=== PATIENT | male | born 1965 | race Caucasian/White ===

== ENCOUNTER 2022-04-30 09:00 | Outpatient (RCR) | payer OTHER, SELFPAY | END 2022-04-30 09:05 | disposition home or self-care (01) | LOC: PT 09:00 | PROVIDERS: Visit Provider Student in an Organized Health Care Education/Training Program | DX: M79.18 Myalgia, other site (principal) | CPT/HCPCS: 20561; 97010; 97012; 97014; 97035; 97140; 97163; G0283 ==

== ENCOUNTER 2022-12-03 01:21 | Emergency (ER) | payer OTHER, SELFPAY ==
[2022-12-03 01:37] VITALS: BP 136/92; PULSE 97; RESP 16; TEMP 36.5; O2SAT 98; BMI 24.7
--- NOTE | 2022-12-03 01:37 | CT_ITS ---
PROCEDURE INFORMATION: Exam: CT Lumbar Spine Without Contrast Exam date and time: 12/03/2022 2:14 AM Age: 57 years old Clinical indication: Low back pain; Patient HX: States pain right sided that radiates down rle and up rue TECHNIQUE: Imaging protocol: Computed tomography of the lumbar spine without contrast. Radiation optimization: All CT scans at this facility use at least one of these dose optimization techniques: automated exposure control; mA and/or kV adjustment per patient size (includes targeted exams where dose is matched to clinical indication); or iterative reconstruction. REPORTING DATA: Count of CT and Cardiac NM exams in prior 12 months: This patient has received 0 known CTs and 0 known cardiac nuclear medicine studies in the 12 months prior to the current study. COMPARISON: CT THORACIC SPINE WO CON 12/03/2022 2:11 AM FINDINGS: Bones/joints: There are 5 lumbar type vertebrae in normal alignment. Vertebral body heights are normal throughout. Disc space heights are well maintained. There is mild facet arthropathy at L3-L4 and L4-L5. Minimal sacroiliac osteoarthritis. Normal psoas margins. Stomach and bowel: Large volume fecal debris noted throughout the visualized colon. Vasculature: Curvilinear hyperdensities are noted lateral to the right kidney, potentially prominent vessel or postsurgical change. Soft tissues: Unremarkable. IMPRESSION: Mild facet arthropathy at L3-L4 and L4-L5 without spinal canal or neural foraminal stenosis.
--- NOTE | 2022-12-03 01:37 | CT_ITS ---
PROCEDURE INFORMATION: Exam: CT Head Without Contrast Exam date and time: 12/03/2022 2:08 AM Age: 57 years old Clinical indication: Other: Radiating pain; Patient HX: States pain right sided that radiates down rle and up rue TECHNIQUE: Imaging protocol: Computed tomography of the head without contrast. Radiation optimization: All CT scans at this facility use at least one of these dose optimization techniques: automated exposure control; mA and/or kV adjustment per patient size (includes targeted exams where dose is matched to clinical indication); or iterative reconstruction. REPORTING DATA: Count of CT and Cardiac NM exams in prior 12 months: This patient has received 0 known CTs and 0 known cardiac nuclear medicine studies in the 12 months prior to the current study. COMPARISON: No relevant prior studies available. FINDINGS: Brain: Normal. No hemorrhage. Unremarkable white matter. No mass effect. Cerebral ventricles: No ventriculomegaly. Paranasal sinuses: Visualized sinuses are unremarkable. No fluid levels. Mastoid air cells: Visualized mastoid air cells are well aerated. Bones/joints: Unremarkable. No acute fracture. Soft tissues: Unremarkable. IMPRESSION: No acute intracranial abnormality.
--- NOTE | 2022-12-03 01:37 | CT_ITS ---
PROCEDURE INFORMATION: Exam: CT Thoracic Spine Without Contrast Exam date and time: 12/03/2022 2:11 AM Age: 57 years old Clinical indication: Pain in thoracic spine; Patient HX: States pain right sided that radiates down rle and up rue TECHNIQUE: Imaging protocol: Computed tomography of the thoracic spine without contrast. Radiation optimization: All CT scans at this facility use at least one of these dose optimization techniques: automated exposure control; mA and/or kV adjustment per patient size (includes targeted exams where dose is matched to clinical indication); or iterative reconstruction. REPORTING DATA: Count of CT and Cardiac NM exams in prior 12 months: This patient has received 0 known CTs and 0 known cardiac nuclear medicine studies in the 12 months prior to the current study. COMPARISON: CT CERVICAL SPINE WO CON 12/03/2022 2:10 AM FINDINGS: Bones/joints: Root no evidence of acute thoracic spine fracture or destructive lesion. Minimal degenerative change with widely patent spinal canal and neural foramina. Visualized posterior ribs are intact. Soft tissues: Paraspinous soft tissues are normal in appearance. Lymph nodes: Calcified left hilar lymph nodes. Lungs: Visualized lung parenchyma is clear. IMPRESSION: No structural abnormality of the thoracic spine to explain patient's pain.
--- NOTE | 2022-12-03 01:38 | XR_ITS ---
PROCEDURE INFORMATION: Exam: XR Chest Exam date and time: 12/03/2022 1:49 AM Age: 57 years old Clinical indication: Right-sided; Patient HX: States pain right sided that radiates down rle and up rue TECHNIQUE: Imaging protocol: Radiologic exam of the chest. Views: 2 views. COMPARISON: No relevant prior studies available. FINDINGS: Lungs: Clear, symmetrically inflated lungs. Pleural spaces: No pleural effusion. No pneumothorax. Heart/Mediastinum: Cardiac silhouette is normal in size for technique. Bones/joints: Age appropriate. IMPRESSION: No acute cardiopulmonary abnormality.
--- NOTE | 2022-12-03 01:38 | XR_ITS ---
PROCEDURE INFORMATION: Exam: XR Pelvis Exam date and time: 12/03/2022 1:53 AM Age: 57 years old Clinical indication: Hip pain; Right hip; Patient HX: States pain right sided that radiates down rle and up rue TECHNIQUE: Imaging protocol: Radiologic exam of the pelvis. Views: 1 or 2 view. COMPARISON: No relevant prior studies available. FINDINGS: Bones/joints: Right greater than left hip osteoarthritis. Symmetric sacroiliac joints. No bony destructive change or fracture. Soft tissues: Unremarkable. IMPRESSION: Right greater than left hip osteoarthritis. No fracture or destructive lesion.
[2022-12-03 01:45] LABS: Microscopic, Urine URINE MICROSCOPIC (MICROSCOPIC)
[2022-12-03 01:46] LABS: Appearance,Urine CLEAR (Clear); Bilirubin,Urine Negative (Negative); Blood, Urine TRACE-I (Negative); Color,Urine YELLOW (Yellow); Glucose,Urine (UA) Negative (Negative); Ketones,Urine Negative (Negative); Leukocyte Esterase,Urine Negative (Negative); Nitrate,Urine Negative (Negative); Protein,Urine Negative (Negative); Specific Gravity, Urine 1.015 (1.005-1.030); Urobilinogen,Urine 0.2 EU/dl (0.2)
--- NOTE | 2022-12-03 01:47 | CT_ITS ---
PROCEDURE INFORMATION: Exam: CT Cervical Spine Without Contrast Exam date and time: 12/03/2022 2:10 AM Age: 57 years old Clinical indication: Neck pain; Patient HX: States pain right sided that radiates down rle and up rue; Additional info: Exacerbation of back pain; Loss of bladder control TECHNIQUE: Imaging protocol: Computed tomography of the cervical spine without contrast. Radiation optimization: All CT scans at this facility use at least one of these dose optimization techniques: automated exposure control; mA and/or kV adjustment per patient size (includes targeted exams where dose is matched to clinical indication); or iterative reconstruction. REPORTING DATA: Count of CT and Cardiac NM exams in prior 12 months: This patient has received 0 known CTs and 0 known cardiac nuclear medicine studies in the 12 months prior to the current study. COMPARISON: CT HEAD/BRAIN WO CON 12/03/2022 2:08 AM FINDINGS: Bones/joints: No acute fracture. Normal alignment. C2-C3: No significant disc bulge or herniation. No severe spinal canal stenosis. No significant neural foraminal narrowing. C3-C4: No significant disc bulge or herniation. No severe spinal canal stenosis. No significant neural foraminal narrowing. C4-C5: No significant disc bulge or herniation. No severe spinal canal stenosis. No significant neural foraminal narrowing. C5-C6: No significant disc bulge or herniation. No severe spinal canal stenosis. No significant neural foraminal narrowing. C6-C7: No significant disc bulge or herniation. No severe spinal canal stenosis. No significant neural foraminal narrowing. C7-T1: No significant disc bulge or herniation. No severe spinal canal stenosis. No significant neural foraminal narrowing. Lungs: Lung apices are normal. Soft tissues: Unremarkable. IMPRESSION: No acute findings.
[2022-12-03 01:49] LABS: Basophils % 0.6 % (0.1-2.0); Eosinophils # 0.4 K/mm3 (0.0-0.4); Eosinophils % 4.7 % (0.1-12.0); Hemoglobin 16.6 g/dL (14.1-18.0); Mean Corpuscular HGB Conc 32.6 g/dL (31.8-35.4); Mean Corpuscular Hemoglobin 28.7 pg (27.0-31.2); Mean Corpuscular Volume 88.1 fl (80-94); Mean Platelet Volume 7.9 fl (7.4-10.4); Monocytes # 0.5 K/mm3 (0.1-1.0); Monocytes % 6.3 % (1.7-9.3); Neutrophils # 4.8 K/mm3 (1.8-7.8); Neutrophils % 62.4 % (37.0-80.0); Platelet Count 244 K/mm3 (142-424); Red Blood Count 5.79 M/mm3 (4.60-6.20); Red Cell Distribution Width 12.8 % (11.5-17.5); White Blood Count 7.7 K/mm3 (4.8-10.8)
[2022-12-03 01:54] LABS: Alanine Aminotransferase 18 U/L (12-78); Albumin Level 4.2 g/dl (3.5-5.0); Albumin/Globulin Ratio 1.3 (1.1-1.8); Alkaline Phosphatase 69 U/L (38-126); Anion Gap 15.9 mEq/L (5-15); Aspartate Amino Transferase 30 U/L (17-59); Bilirubin,Total 0.4 mg/dl (0.2-1.3); Blood Urea Nitrogen 12 mg/dl (9-20); Calcium 8.9 mg/dl (8.4-10.2); Carbon Dioxide 25 mmol/L (22.0-30.0); Chloride 101 mmol/L (98-107); Creatinine Clearance Estimated 71 mL/min (50-200); Estimated Glomerular Filt Rate 57 ml/min (>60); GFR (African American) 69 ML/MIN (>60); Globulin 3.2 g/dL (1.3-3.2); Glucose 131 mg/dl (74-100); Potassium 3.9 mmoL/L (3.5-5.1); Sodium 138 mmol/L (136-145); Total Protein,Serum 7.4 g/dl (6.3-8.2)
[2022-12-03 01:59] LABS: C-Reactive Protein 0.5 mg/L (0-4)
[2022-12-03 02:02] LABS: Bacteria,Urine Trace /lpf; WBC,Urine Occasional #/hpf (0-3)
[2022-12-03 02:25] LABS: Erythrocyte Sedimentation Rate 1 mm/hr (0-20)
--- NOTE | 2022-12-03 03:55 | [facility].EDBACK ---
Discharge Plan Disposition Patient Disposition: Home, Self-Care Condition: Good Prescriptions Prescriptions: New prednisone [prednisone] 20 mg tablet 20 mg PO BID Qty: 10 0RF No Action oxycodone 5 mg Capsule 15 mg PO Q6H PRN (Reason: Pain) testosterone 1 % (25 mg/2.5gram) Gel In Packet 1 packet TRANSDERMAL DAILY imipramine HCl 25 mg tablet 25 mg PO DAILY Referrals Follow up/Referrals: Provider,Referral, MD [Primary Care Provider] - See instructions Clinical Impressions Clinical Impression: Lumbar radiculopathy Instructions Patient Instructions: DI for Back Pain With Sciatica Discharge ED Provider: [place] (ED)[facility] HPI General Chief Complaint: Back Pain/Injury Stated Complaint: Back pain and drawing up,unable to sit down Time Seen by Provider: 12/03/22 03:30 Mode of Arrival: Family Vehicle Source of Information: Patient and Medical Record Limitations: No Limitations Description of Symptoms (Recalled from ER Triage Doc. by RN): 57 yo male presents with CC of acute on chronic pain episode. States he has been being treated spinal related issues for last 7 years, has had several surgeries to correct compression and degenerative related complications; comes in tonight for loss of bladder control x 1 episode. No issues with bowel movements or control. No repeats of issues. States he just feels like his right leg is jumping and the pain is so intense that he cannot sit down for long . History of Present Illness HPI Narrative: pt with hx of ongoing lumbar spine pain with rad to rt lower leg with now sx into upper back with no fall but described jerking motion related to activity - MD Complaint: back pain Onset (ago): day(s) Duration: intermittent Similar Symptoms Previously: Yes Location: lumbar spine and thoracic spine Severity: moderate Quality: sharp Context: turning/twisting Associated symptoms: incontinence Pertinent Issues R/T Back Pain: Back Surgery Treatments prior to arrival: heat therapy Related Data Home Medications Medication Instructions Recorded Confirmed imipramine HCl 25 mg tablet 25 mg PO DAILY Depression 12/03/22 12/03/22 oxycodone 5 mg capsule 15 mg PO Q6H PRN Pain 12/03/22 12/03/22 testosterone 1 % (25 mg/2.5 gram) 1 packet transdermal DAILY 12/03/22 12/03/22 transdermal gel packet Supplement Previous Rx's Medication Instructions Recorded prednisone 20 mg tablet 20 mg PO BID #10 tabs 12/03/22 Allergies Allergy/AdvReac Type Severity Reaction Status Date / Time Penicillins Allergy Verified 12/03/22 01:37 [facility] Disclaimer: The information contained in this section may have been updated after the patient was seen, as this information can be updated by other users. Social History Smoking Status: Former smoker alcohol intake: never current occupational status: retired Travel in the last 8 weeks: None ROS Obtained: Yes All systems reviewed & no additional complaints except as documented Physical Exam General General appearance: alert Head Head exam: normocephalic Eye Eye exam: Present PERRL and EOMI ENT ENT exam: Present mucous membranes moist Neck Neck exam: Present full ROM and trachea midline Respiratory Respiratory exam: Absent respiratory distress Cardiovascular Cardiovascular exam: Present regular rate Extremities Exam Extremities exam: Present full ROM Back Exam Back exam: Present tenderness and straight leg raise (R); Absent full ROM or vertebral tenderness Neurological Exam Neurological exam: Present alert, oriented X3 and CN II-XII intact; Absent motor sensory deficit Psychiatric Psychiatric exam: Present normal affect Skin Skin exam: Absent rash Medical Decision Making Medical Records Medical records reviewed: Yes I reviewed the patient's medical records. [place] Inquiry Pt receiving controlled substance: No Vital Signs: 12/03/22 01:37 12/03/22 04:05 12/03/22 04:05 Temperature
[2022-12-03 04:05] VITALS: BP 127/81; PULSE 89; RESP 19; TEMP 36.7; O2SAT 98
== END 2022-12-03 04:22 | disposition home or self-care (01) ==
PROVIDERS: Emergency Provider Emergency Medicine
DX: M54.16 Radiculopathy, lumbar region (principal); M54.6 Pain in thoracic spine; Z87.891 Personal history of nicotine dependence
CPT/HCPCS: 70450; 71046; 72125; 72128; 72131; 72170; 80053; 81001; 84145; 85025; 85651; 86140; 96374; 96375; 99285